=== PATIENT | male | born 1995 | race Caucasian/White ===

== ENCOUNTER 2016-09-17 11:13 | Emergency (ER) | payer OTHER ==
[~2016-09-17] VITALS: Ht 152.4 cm; Wt 56.5 kg
[2016-09-17 11:18] VITALS: BP 104/67; PULSE 78; TEMP 36.5; O2SAT 98; Ht 152.4 cm; Wt 56.5 kg
[2016-09-17] MEDS ORDERED: HYDR2.5C37 TOP (11:46)
--- NOTE | 2016-09-17 16:14 | EMERGENCY ROOM VISIT NOTE ---
History First contact with patient: 11:31 Chief Complaint: OTHER COMPLAINT Stated Complaint: EXTERNAL HEMATOID SUSPENSION History of Present Illness The patient is a 21 year old male who presents to the Emergency Room with complaints of a mass around his anus. Patient noticed it last night. He states he has been having some difficulty moving his bowels and has been straining. He currently denies any pain around his anus. No trauma. No prior history of similar mass. No other complaints. No treatment yet. Review of Systems REVIEW OF SYSTEM: HEENT: No dizziness, visual problems PULMONARY: No cough, shortness of breath, sputum production or hemoptysis. CARDIOVASCULAR: No chest pain, palpitations, shortness of breath or peripheral edema. GASTROINTESTINAL: No diarrhea, constipation, nausea, vomiting, or abdominal pain. GENITOURINARY: No dysuria, frequency, urgency or nocturia. NEUROLOGIC: No weakness, muscle tenderness, epilepsy or history of neurological problems. MUSCULOSKELETAL: No history of joint tenderness/swelling. No history of arthritis or arthralgias. SKIN: No rashes or lesions. PSYCHIATRIC: No history of depression or mental illness. ENDOCRINE: No history of diabetes, thyroid disorders, or abnormal hair growth. Past Medical/Surgical History Previous surgeries: None Medical history: Unremarkable Family History Noncontributory. Social History Smoking Status: Current Every Day Smoker Smokeless Tobacco Use: No Alcohol Use: none Drug Use: none Marital Status: single Occupation Status: unemployed, [employer] student Current/Historical Medications Scheduled Hydrocortisone 2.5% (Rectal) (Anusol-Hc 2.5%), 1 APPLN TOP BID Allergies Coded Allergies: No Known Allergies (Verified , 09/17/16) Physical Exam Vital Signs Date Time Temp Pulse Resp B/P Pulse Ox O2 Delivery O2 Flow Rate FiO2 09/17/16 11:18 36.5 78 16 104/67 98 Room Air Pain Rating (0-10): 3.0 Physical Exam Gen.: Well-developed, well-nourished, young male, in no acute distress. Laying on a bed. Oriented. Skin:Warm and dry with good turgor. No rashes or lesions. No ecchymosis or erythema. The patient is not diaphoretic. No abrasions. Rectal: Examination of the anus reveals no palpable masses. No abscess. He does have a soft external hemorrhoid present at the 10 o'clock position. It does not appear thrombosed. Nontender, soft, and not currently bleeding. No tracts or fistula. No pain over the pilonidal area. Medical Decision & Procedures ED Course Patient was educated regarding today's findings. Conservative care measures were discussed. He will apply Anusol HC to the area twice a day. He will also soften his stools using Colace, MiraLAX, or Metamucil. He was given a number for general surgery case the pain should become worse. We did discuss what to expect if this should become thrombosed. He will return to the ED or [facility] if his pain is increasing. Hemorrhoid care handout was provided. Medical Decision Possibility of internal hemorrhoid, external hemorrhoid, thrombosed hemorrhoid, anal cyst, rectal abscess, and rectal tag were considered, among others Impression Primary Impression: External hemorrhoid Departure Information Dispostion Home / Self-Care Condition GOOD Prescriptions Hydrocortisone 2.5% (Rectal) (ANUSOL-HC 2.5%) 2.5 % Cre 1 APPLN TOP BID for 7 Days, #30 GM 1 Refill Prov: Ozzie Barahona,P.A. 09/17/16 Referrals Marco Antonio Davis M.D. Forms WORK / SCHOOL INSTRUCTIONS, HOME CARE DOCUMENTATION FORM, IMPORTANT VISIT INFORMATION Patient Instructions Hemorrhoids Self Care, My SemiLev Additional Instructions Keep your stools soft but using Metamucil/Colace/MiraLAX Anusol HC can be applied 2x per day to decrease discomfort and shrink your hemorrhoid contact Dr. Davis from general surgery to discuss ligation versus incision and drainage if pain worsens Return to the ED for any acute changes
== END 2016-09-17 11:45 | disposition home or self-care (01) ==
LOC: C.EDB 11:15 → C.EDD 11:45
DX: K64.4 Residual hemorrhoidal skin tags (principal); F17.210 Nicotine dependence, cigarettes, uncomplicated